=== PATIENT | male | born 1995 | race Caucasian/White ===

== ENCOUNTER 2016-08-31 10:52 | Emergency (ER) | payer OTHER ==
[2016-08-31 13:30] VITALS: BP 121/77
--- NOTE | 2016-08-31 14:10 | UC ---
Eye Complaint HPI - HPI Summary HPI Summary: Bilat eye irritation, watering, itching starting in July. Saw Sara and used abx drops and symptoms were mild so he stopped them. Then sx worsened and he has been using eye antihistamines without relief, sx much worse this week with nasal congestion and cough. Reports when he left town his symptoms were better. - History of Current Complaint Chief Complaint: UCEye Stated Complaint: EYE DISCOMFORT Time Seen by Provider: 08/31/16 13:54 Hx Obtained From: Patient Onset/Duration: Gradual Onset, Lasting Weeks Timing: Constant Severity Initially: Mild Severity Currently: Mild Location of Injury: Conjunctiva Character: Dull Aggravating Factor(s): Nothing Alleviating Factor(s): Nothing Associated Signs And Symptoms: Positive: Drainage (Clear) - Risk Factors Penetrating Injury Risk Factor: Negative Globe Rupture Risk Factors: Negative - Allergies/Home Medications Allergies/Adverse Reactions: Allergies Allergy/AdvReac Type Severity Reaction Status Date / Time Latex Allergy Mild Rash Verified 07/04/13 08:50 Home Medications: Home Medications Tetrahydrozoline HCl (Ophth) [Eye Drops] 08/31/16 [History] PMH/Surg Hx/FS Hx/Imm Hx Endocrine History Of: Denies: Diabetes, Thyroid Disease Cardiovascular History Of: Denies: Cardiac Disorders, Hypertension Respiratory History Of: Denies: COPD, Asthma GI/ History Of: Denies: Ulcer - Surgical History Surgical History: None - Family History Known Family History: Negative: Hypertension - Social History Occupation: Student Lives: Alone Alcohol Use: Weekly Alcohol Amount: UNABLE TO DISCUSS AT THIS TIME Substance Use Type: None, Other Substance Use Comment - Amount & Last Used: UNKNOWN Smoking Status (MU): Never Smoked Tobacco Review of Systems Constitutional: Negative Skin: Negative Eyes: Eye Redness ENT: Sore Throat, Nasal Discharge Respiratory: Negative Cardiovascular: Negative Gastrointestinal: Negative Genitourinary: Negative Motor: Negative Neurovascular: Negative Musculoskeletal: Negative Neurological: Negative Psychological: Negative All Other Systems Reviewed And Are Negative: Yes Physical Exam Triage Information Reviewed: Yes Appearance: Well-Appearing, No Pain Distress, Well-Nourished Vital Signs: Initial Vital Signs Temp 98.4 F 08/31/16 12:11 Pulse 73 08/31/16 12:11 Resp 16 08/31/16 12:11 BP 133/83 08/31/16 12:11 Pulse Ox 100 08/31/16 12:11 Vital Signs Reviewed: Yes Eye Exam: Other - PERRL Eyes: Positive: Conjunctiva Inflamed ENT: Positive: Hearing grossly normal, Pharynx normal, Nasal congestion, TMs normal Dental Exam: Normal Neck exam: Normal Neck: Positive: Supple Respiratory Exam: Normal Respiratory: Positive: Chest non-tender, Lungs clear, Normal breath sounds, No respiratory distress, No accessory muscle use Cardiovascular Exam: Normal Cardiovascular: Positive: RRR, No Murmur Musculoskeletal Exam: Normal Neurological Exam: Normal Psychological Exam: Normal Skin Exam: Normal Eye Complaint Course/Dx - Differential Dx/Diagnosis Provider Diagnoses: allergic conjunctivitis. allergic rhinitis Discharge - Discharge Plan Condition: Stable Disposition: HOME Prescriptions: Cetirizine* [ZyrTEC 10 MG TAB*] 10 mg PO DAILY #30 tab Mometasone NASAL (NF) [Nasonex (NF)] 2 spray BOTH NARES DAILY #1 nasal.spr Patient Education Materials: Allergic Rhinitis (ED), Conjunctivitis (ED) Referrals: No Primary Care Phys,NOPCP [Primary Care Provider] - Additional Instructions: As we discussed, I suspect your eye symptoms (and, likely, your nasal symptoms) are from allergies. Keep using the drops and use the medication I have prescribed. Come back or see Sara if you have pain, foul drainage, or visual changes.
== END 2016-08-31 14:24 | disposition home or self-care (01) ==
LOC: UCEAST 10:52
DX: H10.13 Acute atopic conjunctivitis, bilateral (principal); J30.9 Allergic rhinitis, unspecified
CPT/HCPCS: 99212; G0463